=== PATIENT | female | born 1930 | race Caucasian/White ===

== ENCOUNTER 2018-10-14 11:36 | Observation (INO) | payer MEDICARE ==
[~2018-10-14] VITALS: Ht 144.8 cm; Wt 54.9 kg
--- OUTSIDE RECORDS SUMMARY | 2018-10-14 11:39 | XMS REPORT | Clinical Summary ---
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 Active amLODIPine (NORVASC) 10 Take 10 mg by 0 mg tablet mouth daily. Active lisinopril Take 10 mg by 0 (PRINIVIL,ZESTRIL) 10 mg mouth daily. tablet Active montelukast (SINGULAIR) Take 10 mg by 0 10 mg tablet mouth nightly. Active pravastatin (PRAVACHOL) Take 40 mg by 0 40 MG tablet mouth daily. Active Problems No known active problems Social History Date Tobacco Use Types Packs/Day Years Used Never Smoker Alcohol Use Drinks/Week oz/Week Comments No Sex Assigned at Date Recorded Not on file Industry Job Start Date Occupation Not on file Not on file Not on file Travel End Travel History Travel Start No recent travel history available. Last Filed Vital Signs Not on file Plan of Treatment Not on file Results Not on fileafter 10/13/2017 Insurance Type Payer Benefit Subscriber ID Effective Phone Address Plan / Dates Group PPO HUMANA MEDICARE HUMANA xxxxxxxxx 2016-P MEDICARE resent PPO/PFFS/E NIGHAT [facility] Advance Directives Patient has advance care planning documents on file. For more information, yuly rodarte contact: Noel Alonzo [address] [place] [address]
--- NOTE | 2018-10-14 11:50 | NUR ---
RECEIVED PT VIA W/C FROM THE LOBBY INTO ER 8. 2 DAUGHTERS AT BEDSIDE. TOOK PT TO THE RESTROOM FIRST BEFORE GOWNING HER AND PLACING HER ON THE MONITOR. SHE TRIED TO GIVE A URINE SAMPLE BUT COULD ONLY DO ABOUT 1/2 ML. SHE SAID THAT SHE HAD GONE JUST PHARMACY RESIDENT. PT C/O INTERMITTENT SMALL AMOUNTS OF BRIGHT RED BLOOD ON TOILET PAPER WHEN SHE WIPES FOR ABOUT 1 MONTH. IT IS USUALLY AFTER SHE TRIES TO HAVE A BM. SHE SAID THAT SHE DOES HAVE HX OF CONSTIPATION.
--- NOTE | 2018-10-14 12:15 | NUR ---
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
--- NOTE | 2018-10-14 13:25 | NUR ---
ASSISTED PT TO RESTROOM AND URINE OBTAINED AND TAKEN TO LAB
[2018-10-14 13:35] LABS: BASOPHILS # (AUTO) 0.1 (0.0-0.1); BASOPHILS % 0.9 % (0.0-1.0); EOSINOPHILS # (AUTO) 0.3 (0.0-0.4); EOSINOPHILS % 3.9 % (0.0-6.0); HEMATOCRIT 30.5 % (34.2-44.1); HEMOGLOBIN 10.7 g/dL (12.0-16.0); LYMPHOCYTES # (AUTO) 1.5 (1.0-3.2); LYMPHOCYTES % 22.5 % (18.0-39.1); MEAN CORPUSCULAR HEMOGLOBIN 29.9 pg (28-32); MEAN CORPUSCULAR HGB CONC 35.1 g/dL (31-35); MEAN CORPUSCULAR VOLUME 85.2 fL (81-99); MONOCYTES # (AUTO) 0.7 (0.2-0.8); MONOCYTES % 10.3 % (4.4-11.3); NEUTROPHILS % 61.9 % (38.7-80.0); PLATELET COUNT 314 x10e3/uL (140-360); RED BLOOD COUNT 3.58 x10e6/uL (3.6-5.1); RED CELL DISTRIBUTION WIDTH 13.4 % (11.7-14.4)
[2018-10-14 13:52] LABS: INR 0.93
[2018-10-14 13:53] LABS: PARTIAL THROMBOPLASTIN TIME 32.3 seconds (23.8-35.5)
[2018-10-14 14:02] LABS: ALBUMIN 3.8 g/dL (3.5-5.0); ALBUMIN/GLOBULIN RATIO 1.3 (0.8-2.0); ANION GAP 15.2 mmol/L (8-16); CREATININE, SERUM 0.98 mg/dL (0.57-1.11); POTASSIUM 4.2 mmol/L (3.5-5.1)
[2018-10-14 14:13] LABS: BILIRUBIN,URINE NEGATIVE (NEGATIVE); CLARITY,URINE CLEAR (CLEAR); COLOR,URINE YELLOW (YELLOW); KETONES,URINE NEGATIVE (NEGATIVE); LEUKOCYTE ESTERASE ,URINE NEGATIVE (NEGATIVE); NITRITE,URINE NEGATIVE (NEGATIVE); PROTEIN,URINE DIPSTICK NEGATIVE (NEGATIVE); URINE UROBILINOGEN 0.2 mg/dL (0.2 - 1)
[2018-10-14 14:15] LABS: BACTERIA,URINE FEW /HPF; EPITHELIAL CELLS,URINE FEW /LPF; RBC,URINE 0-5 /HPF (0-5)
[2018-10-14] MEDS ORDERED: ALLEGRA ALLERG180 MG PO (15:16)
[2018-10-14] MEDS ORDERED: AMLODIPINE BESY10 MG PO (15:16)
[2018-10-14] MEDS ORDERED: PRAVASTATIN SOD40 MG PO (15:16)
[2018-10-14] MEDS ORDERED: SINGULAIR10 MG PO (15:16)
[2018-10-14] MEDS ORDERED: LISINOPRIL10 MG PO (15:16)
[2018-10-14] MEDS ORDERED: ADVAIR 250-501 EACH (15:16)
[2018-10-14] MEDS ORDERED: VITAMIN B12-FO1 EACH PO (15:16)
--- OUTSIDE RECORDS SUMMARY | 2018-10-14 15:31 | XMS REPORT | Clinical Summary ---
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 For more information, yuly rodarte contact: Noel Alonzo [address] [place] [address]
[2018-10-14] MEDS: SODIUM CHLORIDE 0.9% 1000ML 1,000 ML IV SCH ×2 (15:50→23:25)
[2018-10-14] MEDS: PANTOPRAZOLE 40 MG 10ML VIAL IV SCH (15:50)
--- NOTE | 2018-10-14 15:50 | NUR ---
DISCUSSED THE ADMISSION PROCESS WITH PT AND FAMILY. THEY HAD SOME QUESTIONS. ALL QUESTIONS WERE ANSWERED AND ALL CONCERNS WERE ADDRESSED. PT RESTING QUIETLY IN NO DISTRESS. NO COMPLAINTS AT THIS TIME. PER FAMILY SHE HAS BEEN ASSISTED TO THE TOILET TO URINATE A COUPLE MORE TIMES.
--- NOTE | 2018-10-14 16:15 | NUR ---
REPORT CALLED TO JESÚS
--- NOTE | 2018-10-14 17:00 | NUR ---
Received patient from ER. She is awake, alertx3, and able to make needs known. Pt admitted for GI bleed. POC discussed. She was instructed to call for assistance as needed and verbalized understanding. Call cantrell within reach.
[2018-10-14 18:09] VITALS: BP 164/98
[2018-10-14 18:33] LABS: HEMATOCRIT 30.2 % (34.2-44.1); HEMOGLOBIN 10.5 g/dL (12.0-16.0)
[2018-10-14 18:35] VITALS: BP 164/98
--- NOTE | 2018-10-14 19:00 | NUR ---
Report and walking rounds completed. Patient in bed with visitors at bedside. Call light within reach. Will continue to monitor.
--- NOTE | 2018-10-14 19:05 | NUR ---
REPORT GIVEN TO ONCOMING SHIFT.
[2018-10-14 20:00] VITALS: BP 173/74
[2018-10-14] MEDS: LABETALOL HCL 5 MG/ML 20ML VIAL IV PRN (20:53)
[2018-10-14 22:04] VITALS: BP 173/74
[2018-10-14] MEDS ORDERED: BISACODYL 5 MG TAB EC PO ONE ×2 (22:45→23:15)
[2018-10-14] MEDS ORDERED: CITRATE OF MAGNESIA 300ML BOTTLE PO ONE (23:30)
[2018-10-15] VITALS (9 sets, daily range): BP systolic 149–201; BP diastolic 67–79
[2018-10-15] MEDS ORDERED: ONDANSETRON HCL INJ 2MG/ML 2ML 2 MG/ML VIAL IV STA (00:01)
[2018-10-15] MEDS: LABETALOL HCL 5 MG/ML 20ML VIAL IV PRN ×2 (00:05→20:49)
[2018-10-15] MEDS ORDERED: ONDANSETRON HCL INJ 2MG/ML 2ML 2 MG/ML VIAL IV PRN (00:15)
[2018-10-15 01:48] LABS: HEMATOCRIT 31.7 % (34.2-44.1)
[2018-10-15] MEDS ORDERED: CITRATE OF MAGNESIA 300ML BOTTLE PO ONE (05:00)
[2018-10-15 05:03] LABS: HEMATOCRIT 31.9 % (34.2-44.1); HEMOGLOBIN 10.5 g/dL (12.0-16.0)
--- NOTE | 2018-10-15 05:15 | NUR ---
Called to room, patient vomiting after drinking mag citrate. 4oz in emesis bag, vomit noted to gown and floor. Left message with Dr Augustin answering service ( [employer]) to see if would like to order anything else. Awaiting call back.
[2018-10-15 05:27] LABS: ALBUMIN 3.7 g/dL (3.5-5.0); ALBUMIN/GLOBULIN RATIO 1.3 (0.8-2.0); ANION GAP 14.8 mmol/L (8-16); CALCIUM 9.3 mg/dL (8.4-10.2); CREATININE, SERUM 0.93 mg/dL (0.57-1.11); POTASSIUM 3.8 mmol/L (3.5-5.1)
[2018-10-15] MEDS ORDERED: BISACODYL 5 MG TAB EC PO ONE ×2 (06:00→06:30)
--- NOTE | 2018-10-15 06:00 | NUR ---
Resting in bed with daughter at bedside. No issues or concerns at this time. Call light within reach. Will continue to monitor.
--- NOTE | 2018-10-15 06:00 | NUR ---
Return call from Dr Augustin. New orders received.
--- NOTE | 2018-10-15 06:54 | NUR ---
H&P cc:rectal bleeding HPI: 87yoF, PCP , developed rectal bleeding; no real abdominal pain. Not on blood thinners. PMH: HTN, valvular heart ds, rectal bleeding, UT without stents PShx: appendectomy, csection, Hysterectomy Allergies; see emr fh/SH; ; no cigs/etoh meds; see MAR ROS: no f/c/s/N/V/D/DAILY/cp/sob/leg pain/back pain v/s; revd PE: tired appearing anicteric ns1s2 mod bs soft nt nd no e/t awake; miller skin dry flat affect labs/meds; revd A/P: GIB Hyponatremia Mild anemia SHEBA HTN HLD PLAN IV ppi; colonoscopy pending f/u H/H GI consult SCD DVT prop Chris Bhatti MD, PhD.
--- NOTE | 2018-10-15 06:55 | NUR ---
Walking rounds and report received. Patient is resting in bed with eyes closed, respirations are equal and unlabored. She was instructed to call for assistance as needed and verbalized understanding. AM assessment done. Call cantrell within reach.
[2018-10-15] MEDS: SODIUM CHLORIDE 0.9% 1000ML 1,000 ML IV SCH ×2 (07:10→16:43)
[2018-10-15] MEDS: AMLODIPINE BESYLATE 10 MG TAB PO SCH (08:30)
[2018-10-15] MEDS: PANTOPRAZOLE 40 MG 10ML VIAL IV SCH ×2 (08:51→16:38)
--- NOTE | 2018-10-15 09:45 | NUR ---
Visit made by the Spiritual Care Department Pastoral Visitor, Shakila Lemus. Pt sleeping soundly and no family present. Pastoral Visitor left a card describing availability of budget accountant and instructions on how to contact a budget accountant. JEY BELTRE Research Leader Spiritual Care Department O: [phone] Pager: [phone] ([phone] number calling from)
[2018-10-15] MEDS: SALMETEROL/FLUTICASONE 250/50 INH SCH (10:05)
--- NOTE | 2018-10-15 11:45 | NUR ---
Tap water enema given as ordered by Dr. Augustin. Patient passing light yellow clear stool and tolerated enema well
[2018-10-15 11:57] LABS: HEMATOCRIT 31.9 % (34.2-44.1); HEMOGLOBIN 11.1 g/dL (12.0-16.0)
--- NOTE | 2018-10-15 14:08 | NUR ---
patient to endo at this time.
[2018-10-15] MEDS ORDERED: PANTOPRAZOLE 40 MG 10ML VIAL IV NR (16:15)
[2018-10-15] MEDS ORDERED: PROPOFOL IV EMULSION 10 MG/ML 20 ML VIAL ONE (18:09)
[2018-10-15] MEDS ORDERED: LIDOCAINE HCL 2% LOCAL INJ 5 ML SDV VIAL INJ ONE (18:09)
[2018-10-15 18:39] LABS: HEMOGLOBIN 9.7 g/dL (12.0-16.0)
--- NOTE | 2018-10-15 19:00 | NUR ---
Report and walking rounds completed. Patient in bed on phone with visitors at bedside. No issues or concerns. Call light within reach. Will continue to monitor.
[2018-10-15] MEDS ORDERED: PRAVASTATIN 20 MG TAB PO SCH (21:00)
[2018-10-15] MEDS ORDERED: MONTELUKAST SODIUM 10 MG TAB PO SCH (21:00)
[2018-10-16] VITALS: BP 146/70
[2018-10-16 00:11] LABS: HEMATOCRIT 27.7 % (34.2-44.1); HEMOGLOBIN 9.4 g/dL (12.0-16.0)
[2018-10-16] MEDS: SODIUM CHLORIDE 0.9% 1000ML 1,000 ML IV SCH (03:49)
[2018-10-16] MEDS: LABETALOL HCL 5 MG/ML 20ML VIAL IV PRN (03:49)
[2018-10-16 03:57] VITALS: BP 183/77
[2018-10-16 04:15] VITALS: BP 163/70
[2018-10-16 05:31] LABS: HEMATOCRIT 28.6 % (34.2-44.1); HEMOGLOBIN 9.9 g/dL (12.0-16.0)
--- NOTE | 2018-10-16 06:00 | NUR ---
Resting in bed with daughter at beside. No issues or concerns at this time. Call light within reach. Will continue to monitor.
--- NOTE | 2018-10-16 06:21 | NUR ---
IM- progress note O/N: no events ROS: no f/c/s/N/V/D/DAILY/cp/sob/leg pain/back pain v/s; revd D/C summary: Principal Dx: GIB Hyponatremia Mild anemia SHEBA gastritis erosive esophagitis esophageal stricture hiatal hernia diverticulosis internal hemorrhoids colonic polyp Seconary Dx: HTN HLD PLAN IV ppi; colonoscopy pending f/u H/H GI consult SCD DVT prop 10/16 endoscopy= gastritis, erosive esophagitis, esophageal stricture, hiatal hernia, diverticulosis, internal hemorrhoids and colonic polyp d/c home stable f/u pcp 1 week d/c>35mins Chris Bhatti MD, PhD.
[2018-10-16] MEDS ORDERED: PANTOPRAZOLE SO40 MG PO (07:09)
[2018-10-16 07:20] VITALS: BP 143/60
--- NOTE | 2018-10-16 07:20 | NUR ---
Pt received resting in bed with daughter at bedside. Alert and oriented x4 but ambulates with walker. Oriented to staff and surroundings. Encouraged to press call cantrell if help needed. Emotional support given. Call cantrell within reach. Will monitor
[2018-10-16] MEDS: SALMETEROL/FLUTICASONE 250/50 INH SCH (07:50)
--- NOTE | 2018-10-16 09:00 | NUR ---
All meds given as ordered. Call cantrell within reach. Will monitor
[2018-10-16] MEDS: PANTOPRAZOLE 40 MG 10ML VIAL IV SCH (09:13)
[2018-10-16] MEDS: AMLODIPINE BESYLATE 10 MG TAB PO SCH (09:13)
--- NOTE | 2018-10-16 09:30 | NUR ---
Pt & daughter given discharge instructions regarding meds, diet, activities, s/s to report and follow up appointment. Both verbalized understanding of teaching. Awaiting family to pick pt up. Will monitor
--- NOTE | 2018-10-16 10:10 | NUR ---
Pt left unit in wheelchair with all belongings
[2018-10-16] MEDS ORDERED: SIMVASTATIN 20 MG TAB PO SCH (21:00)
--- NOTE | 2018-12-09 17:45 | NUR ---
D/C summary Principal Dx: GIB Hyponatremia Mild anemia SHEBA gastritis erosive esophagitis esophageal stricture hiatal hernia diverticulosis internal hemorrhoids colonic polyp Seconary Dx: HTN HLD PLAN IV ppi; colonoscopy pending f/u H/H GI consult SCD DVT prop 10/16 endoscopy= gastritis, erosive esophagitis, esophageal stricture, hiatal hernia, diverticulosis, internal hemorrhoids and colonic polyp d/c home stable f/u pcp 1 week d/c>35mins Chris Bhatti MD, PhD.
--- NOTE | 2019-01-09 07:01 | Operative Report ---
DATE OF PROCEDURE: 10/15/2018 SURGEON: Tonny Augustin MD PROCEDURE: EGD with biopsies and esophageal dilatation, and colonoscopy with polypectomy and hot biopsy. REFERRING PHYSICIAN: Chris Bhatti MD INDICATIONS FOR EGD: Dysphagia, history of heartburn, and indigestion. INDICATIONS FOR COLONOSCOPY: Rectal bleeding. MEDICATIONS: The patient was done under MAC, please see anesthesiologist's note. PROCEDURE IN DETAIL: With the patient in the left lateral decubitus position, a flexible fiberoptic Olympus gastroscope was introduced into the esophagus under direct visualization without any difficulty. Some erosions were noted in the distal esophagus without active bleeding. There was a mild stricture noted at the GE junction that was dilated to size 48-Gambian Blair. The scope was then advanced with ease into the stomach traversing a small hiatal hernia. The mucosa overlying the antrum and the body revealed some patchy erythema and low-grade to moderate edema, and biopsies were obtained and sent to stain for H pylori. Pylorus was of normal contour and shape. It was intubated with ease and the scope was advanced all the way to the second portion of the duodenum. The scope was then withdrawn slowly. Mucosa overlying the proximal second portion and duodenal bulb appeared to be within normal limits. The scope was then withdrawn back into the stomach and retroflexed. Mucosa overlying the fundus appeared to be within normal limits. The previously described hiatal hernia was also noted in the retroflexed position. The scope was then straightened out. It was subsequently withdrawn. The patient tolerated procedure well. IMPRESSION: 1. Erosive esophagitis. 2. Stricture, GE junction, tight, dilated to size 48-Gambian Blair. 3. Hiatal hernia. 4. Gastritis, biopsied, biopsies sent to stain for H pylori. PLAN: Follow up histology. Initiate Protonix 40 mg one p.o. a.c. b.i.d. The patient was then turned around after adequate lubrication of the anal canal, a flexible fiberoptic Olympus colonoscope was inserted into the rectum with ease and advanced all the way to the cecum. Diverticular disease was noted basically throughout the colon. The scope was then withdrawn slowly. One polyp from the proximal ascending colon was snared. A nodule fold was noted also in the proximal ascending colon that was hot biopsied. An additional polyp was snared from the ascending colon. The transverse descending sigmoid other than for diverticulosis appeared to be within normal limits. The rectum appeared to be within normal limits. The scope was then retroflexed into the distal rectum and large internal hemorrhoids were noted, none of which was actively bleeding. The scope was then straightened out, it was subsequently withdrawn. The patient tolerated procedure well. IMPRESSION: 1. Pandiverticulosis. 2. Ascending colon polyps, snared x2. 3. Nodular fold proximal ascending colon, hot biopsied. 4. Internal hemorrhoids, none actively bleeding. PLAN: Follow up histology. Initiate GI soft diet. There is no need for a followup colonoscopy in this 87-year-old patient. Tonny Augustin MD [facility]/JORGE /[id number] cc: Chris Bhatti MD
== END 2018-10-16 10:25 | disposition home or self-care (01) ==
LOC: ER 11:36 → ERHOLD 15:29 → IMCU 16:59
PROVIDERS: ADMIT Internal Medicine; ATTEND Internal Medicine
DX: K29.51 Unspecified chronic gastritis with bleeding (principal); I10 Essential (primary) hypertension; I25.2 Old myocardial infarction; I38 Endocarditis, valve unspecified; Z88.0 Allergy status to penicillin; Z88.8 Allergy status to other drugs, medicaments and biological substances; Z82.49 Family history of ischemic heart disease and other diseases of the circulatory system; K64.4 Residual hemorrhoidal skin tags; D62 Acute posthemorrhagic anemia; E87.1 Hypo-osmolality and hyponatremia; N17.9 Acute kidney failure, unspecified; E78.5 Hyperlipidemia, unspecified; R13.10 Dysphagia, unspecified; R12 Heartburn; K29.70 Gastritis, unspecified, without bleeding; K22.10 Ulcer of esophagus without bleeding; K44.9 Diaphragmatic hernia without obstruction or gangrene; K57.30 Diverticulosis of large intestine without perforation or abscess without bleeding; K64.8 Other hemorrhoids; K63.5 Polyp of colon; K22.2 Esophageal obstruction
CPT/HCPCS: 36415 ×3; 43239; 43450; 45380; 45385; 80053 ×2; 81001; 82150; 82270; 83690; 85014 ×3; 85018 ×3; 85025; 85610; 85730; 86850; 86870; 86880; 86900; 86905; 88305; 88312; 94664 ×2; 99001; 99284; C9113 ×3; G0378 ×3; J2001; J2405; J2704; J3490; J7030 ×3; 45384